=== PATIENT | female | born 1965 | race Caucasian/White ===

== ENCOUNTER 2019-09-23 07:31 | Day surgery (SDC) | payer BC, OTHER ==
[2019-09-23] MEDS ORDERED: METHYLPREDNISOLONE ACETATE INJ 40 MG/1 ML ML ONE ×2 (08:26→08:57)
[2019-09-23] MEDS ORDERED: LIDOCAINE 1% INJ-PF (10 MG/ML) 30 ML SDV ONE (08:26)
[2019-09-23] MEDS ORDERED: BUPIVACAINE HCL 0.5 % INJ/PF 30 ML SDV ONE (08:26)
[2019-09-23] MEDS ORDERED: LIDOCAINE 2% INJ (20 MG/ML) 20 ML MDV ONE (08:26)
[2019-09-23] MEDS ORDERED: MIDAZOLAM 2 MG/2 ML INJ ONE (08:38)
[2019-09-23] MEDS ORDERED: FENTANYL CITRATE INJ/PF 100 MCG/2 ML AMPUL ONE (08:38)
--- NOTE | 2019-09-23 09:57 | Operative Report ---
KNEE RADIOFREQUENCY : LEFT KNEE PROCEDURE: 1. Superolateral genicular branch from the vastus lateralis 2. Superomedial genicular branch from the vastus medialis 3. Inferomedial genicular branch from the saphenous nerve 4. Medial retinacular branch from the vastus intermedius DATE OF PROCEDURE: 09/23/2019 ANESTHESIA: Local with IV sedation with midazolam and fentanyl COMPLICATIONS: None PROCEDURE IN DETAIL: Hx/PE/meds/allergies/applicable labs reviewed. No changes and no contraindications were found. Full description of the procedure was provided including benefits as well as possible complications including transient increased pain, stomach irritation, mood alteration, transient weakness or parasthesias as well as more serious nerve injury, bleeding, infection or allergic reaction. Informed consent was obtained and documented. The patient was brought to the procedure room and placed on the exam table in a comfortable supine position. The place for needle placement was obtained by manual palpation with radiographic confirmation. The sterile field was prepared by chloroprep and sterile drapes. Local anesthesia superficial and deep was provided by local infiltration of 1% lidocaine. A 17g 75 mm radiofrequency introducer needle with a 4 mm active tip was placed overlying the LEFT knee joint and using fluoroscopic guidance the needle was advanced to a bony endpoint on the superiolateral portion of the femoral condyle of the Right/left knee. A second needle was advanced to a bony endpoint on the superiomedial portion of the femoral condyle. A third needle was then placed over the inferiomedial portion of the tibial condyle until a bony endpoint was met. A fourth needle placed midline of the femur approximately 2cm superior to the upper border of the patella. Attempted aspiration yielded no blood. Lateral x-ray views showed all the needles at 50% depth of the femur and tibia. Motor stimulation was tested at 2.0 volts with no leg movement. Images were saved in AP and lateral. A mixture consisting of 2mL of 2% lidocaine was slowly injected. Then a radiofrequency ablation of each of the geniculate nerves were done at 80 degrees Celsius for 2 minutes and 30 seconds each. Following ablation each site was infiltrated with 1 mL of a solution containing 0.25% bupivacaine with 40 mg of Depo-Medrol. The needles were withdrawn. The patient tolerated the procedure well. This juncture attention was turned to the right knee. The right knee was prepped with chlorhexidine gluconate solution. The skin was anesthetized at the inferior medial aspect of the patella. Then a 3.5 inch 25-gauge spinal needle was advanced to the joint space. After negative aspiration a solution containing 4 mL of 1% lidocaine with 40 mg of Depo-Medrol was injected. The needle was withdrawn. Bandages were placed. After observation the patient was discharged with instructions and follow up. They were also provided contact information to call regarding any concerning symptoms or questions. IMPRESSION: 1. Successful geniculate knee radiofrequency ablation was performed. 2. Intraarticular injection of depomedrol in the right knee performed. 2. The patient was given prescription of oxycodone 10 mg tablets for postprocedural pain.. 3. RTC in 3 week(s).
[2019-09-23 11:09] VITALS: BP 123/61
== END 2019-09-23 11:15 | disposition home or self-care (01) ==
LOC: RAD 07:31
PROVIDERS: ATTEND Pain Medicine Interventional Pain Medicine
DX: M47.816 Spondylosis without myelopathy or radiculopathy, lumbar region (principal); Z88.0 Allergy status to penicillin; Z88.2 Allergy status to sulfonamides; Z88.8 Allergy status to other drugs, medicaments and biological substances; M06.9 Rheumatoid arthritis, unspecified; I10 Essential (primary) hypertension
CPT/HCPCS: 64640 ×3; 99152; 99153; J2250; J3490 ×2; J3010; J1030

== ENCOUNTER 2020-04-20 07:38 | Day surgery (SDC) | payer OTHER ==
[2020-04-20] MEDS ORDERED: LIDOCAINE 1% INJ-PF (10 MG/ML) 30 ML SDV ONE (07:56)
[2020-04-20] MEDS ORDERED: METHYLPREDNISOLONE ACETATE INJ 40 MG/1 ML ML ONE (07:56)
[2020-04-20] MEDS ORDERED: BUPIVACAINE HCL 0.5 % INJ/PF 30 ML SDV ONE (07:56)
[2020-04-20] MEDS ORDERED: LIDOCAINE 2% INJ (20 MG/ML) 20 ML MDV ONE (07:56)
[2020-04-20] MEDS ORDERED: DIAZEPAM 5 MG TABLET ONE (08:26)
[2020-04-20] MEDS ORDERED: FENTANYL CITRATE INJ/PF 100 MCG/2 ML AMPUL ONE (08:35)
[2020-04-20] MEDS ORDERED: MIDAZOLAM 2 MG/2 ML INJ ONE (08:35)
--- NOTE | 2020-04-20 09:34 | Operative Report ---
LEFT KNEE RADIOFREQUENCY PROCEDURE: 1. Superolateral genicular branch from the vastus lateralis 2. Superomedial genicular branch from the vastus medialis 3. Inferomedial genicular branch from the saphenous nerve 4. Medial retinacular branch from the vastus intermedius DATE OF PROCEDURE: Apr 20 2020 ANESTHESIA: Local with IV sedation including midazolam and fentanyl COMPLICATIONS: None PROCEDURE IN DETAIL: Hx/PE/meds/allergies/applicable labs reviewed. No changes and no contraindications were found. Full description of the procedure was provided including benefits as well as possible complications including transient increased pain, stomach irritation, mood alteration, transient weakness or parasthesias as well as more serious nerve injury, bleeding, infection or allergic reaction. Informed consent was obtained and documented. The patient was brought to the procedure room and placed on the exam table in a comfortable supine position. The place for needle placement was obtained by manual palpation with radiographic confirmation. The sterile field was prepared by chloroprep and sterile drapes. Local anesthesia superficial and deep was provided by local infiltration of 1% lidocaine. A 17g 75mm radiofrequency introducer needle with a 4 mm active tip was placed overlying the left knee joint and using fluoroscopic guidance the needle was advanced to a bony endpoint on the superiolateral portion of the femoral condyle of the left knee. A second needle was advanced to a bony endpoint on the superiomedial portion of the femoral condyle. A third needle was then placed over the inferiomedial portion of the tibial condyle until a bony endpoint was met. Optional fourth needle placed midline of the femur approximately 2cm superior to the upper border of the patella. Attempted aspiration yielded no blood. Lateral x-ray views showed all the needles at 50% depth of the femur and tibia. Motor stimulation was tested at 2.0 volts with no leg movement. Images were saved in AP and lateral. A mixture consisting of 2% lidocaine was slowly injected. Then a radiofrequency ablation of each of the geniculate nerves were done at 80 degrees Celsius for 2 minutes and 30 seconds each. The electrodes were withdrawn and each site was infiltrated with a mixture of 0.25% bupivacaine and 40mg depoemedrol. The needles were withdrawn. The patient tolerated the procedure well. After observation the patient was discharged with instructions and follow up. They were also provided contact information to call regarding any concerning symptoms or questions. IMPRESSION: 1. Successful geniculate knee radiofrequency ablation was performed. 2. The patient was given prescription of oxycodone for postprocedural pain. 3. RTC in 3 week(s).
--- NOTE | 2020-04-20 13:45 | RADIOLOGY REPORT (SQ) ---
EXAM DESCRIPTION: MOD SED SAME PHYS/QHP ADDL 15M IMAGES COMPLETED DATE/TIME: 04/20/2020 9:43 am REASON FOR STUDY: LEFT KNEE ABLATION WITH CONSCIOUS SEDATION M25.562 PAIN IN LEFT KNEE COMPARISON: None. FLUOROSCOPY TIME: 0.7 minutes 8 images saved to PACS. TECHNIQUE: Intra-operative images acquired during surgical procedure to evaluate progress. NUMBER OF IMAGES: 8 LIMITATIONS: None. FINDINGS: [employer] and probes overlying distal femur from anterior approach. IMPRESSION: IMAGE(S) OBTAINED DURING PROCEDURE. COMMENT: Quality ID [id number]: Final reports for procedures using fluoroscopy that document radiation exp osure indices, or exposure time and number of fluorographic images (if radiation exposure indices are not available) Please consult full operative report of the attending physician for description of the procedure. TECHNICAL DOCUMENTATION: JOB ID: [id number] 2010 [employer]- All Rights Reserved Reading location - IP/workstation name: [email or web address]
[2020-04-20 19:04] VITALS: BP 134/78
[2020-04-20] MEDS ORDERED: DIAZEPAM 5 MG TABLET PO ONE (19:15)
== END 2020-04-20 10:05 | disposition home or self-care (01) ==
LOC: RAD 07:38
PROVIDERS: ATTEND Pain Medicine Interventional Pain Medicine
DX: M25.562 Pain in left knee (principal)
CPT/HCPCS: 64624; 99153; J2250; J3490 ×3; J3010; J1030